=== PATIENT | male | born 1985 | race Caucasian/White ===

== ENCOUNTER 2023-12-06 13:03 | Emergency (ER) | payer MEDICAID ==
[~2023-12-06] VITALS: Ht 177.8 cm; Wt 79.0 kg
[2023-12-06 13:13] VITALS: O2SAT 99
[2023-12-06] MEDS: KETOROLAC 15MG/ML VIAL IM ONE (15:08)
[2023-12-06] MEDS: ACETAMINOPHEN 325MG TABLET PO ONE (15:08)
[2023-12-06] MEDS ORDERED: IBUP-2029 MT (16:24)
[2023-12-06] MEDS ORDERED: DOXY100T2 MT (16:42)
[2023-12-06 17:02] VITALS: BP 118/77; PULSE 78; RESP 16; TEMP 36.89184; O2SAT 100
== END 2023-12-06 17:03 | disposition home or self-care (01) ==
LOC: ER 13:03
DX: S92.911A Unspecified fracture of right toe(s), initial encounter for closed fracture (principal); X58.XXXA Exposure to other specified factors, initial encounter; Y93.89 Activity, other specified; Y92.89 Other specified places as the place of occurrence of the external cause; Y99.8 Other external cause status
CPT/HCPCS: 73630; 73660; 96372; 99284; J1885; Z7610 ×2